=== PATIENT | male | born 1935 | race Caucasian/White ===

== ENCOUNTER 2021-08-29 19:11 | Day surgery (SDCO) | payer MEDICARE ==
[~2021-08-29] VITALS: Ht 182.9 cm; Wt 87.8 kg
[2021-08-29 19:41] LABS: BASOPHIL 0.6 % (0-2); EOSINOPHIL 0.4 % (0-7); HCT 42.5 % (42.0-52.0); HGB 14.1 g/dl (13.2-18.0); LYMPHOCYTE 6.2 % (15-48); MCH 32.8 pg (25.0-31.0); MCHC 33.2 g/dL (32.0-36.0); MCV 98.8 fL (78.0-100.0); MPV 10.4 fL (6.0-9.5); NEUTROPHIL 87.5 % (41-80); NRBC 0; PLT 241 K/uL (150-400); RDW 13.4 % (11.5-14.0); WBC 6.9 K/uL (4.0-10.5)
[2021-08-29 19:54] LABS: ALBUMIN 3.7 g/dL (3.4-5.0); BILIRUBIN - TOTAL 0.6 mg/dL (0.2-1.0); BUN/CREAT RATIO (CALC) 22.8 RATIO; CREATININE 0.92 mg/dL (0.67-1.17); GLOBULIN (CALCULATION) 3.1 g/dL; POTASSIUM 4.1 mmol/L (3.5-5.1); TOTAL PROTEIN 6.8 g/dL (6.4-8.2)
[2021-08-29 20:32] LABS: CORONAVIRUS 2019 SARS-COV-2 NEGATIVE (NEGATIVE); INFLUENZA A NAA NEGATIVE (NEGATIVE)
[2021-08-30] MEDS ORDERED: ISOSORBIDE MONO60 MG PO (01:06)
[2021-08-30] MEDS ORDERED: PRINIVIL20 MG PO (01:07)
[2021-08-30] MEDS ORDERED: APRESOLINE100 MG PO (01:07)
[2021-08-30] MEDS ORDERED: PRAVACHOL20 MG PO (01:07)
[2021-08-30] MEDS ORDERED: FLOMAX0.4 MG PO (01:08)
[2021-08-30] MEDS ORDERED: ONE-A-DAY MEN'1 EAC3 PO (01:09)
[2021-08-30] MEDS ORDERED: FUROSEMIDE 20MG20 MG PO (01:09)
[2021-08-30] MEDS ORDERED: METFORMIN HCL500 MG PO ×2 (01:10)
[2021-08-30] MEDS ORDERED: VAZALORE81 MG PO (01:11)
[2021-08-30 06:51] LABS: BASOPHIL 0.7 % (0-2); EOSINOPHIL 0.9 % (0-7); HCT 35.5 % (42.0-52.0); HGB 11.7 g/dl (13.2-18.0); LYMPHOCYTE 13.1 % (15-48); MCH 32.4 pg (25.0-31.0); MCV 98.3 fL (78.0-100.0); MONOCYTE 12.6 % (0-12); MPV 10.3 fL (6.0-9.5); NEUTROPHIL 72.5 % (41-80); NRBC 0; PLT 192 K/uL (150-400); RBC 3.61 M/uL (4.70-6.00); RDW 13.6 % (11.5-14.0); WBC 4.4 K/uL (4.0-10.5)
[2021-08-30 07:25] LABS: ALBUMIN 2.7 g/dL (3.4-5.0); BILIRUBIN - TOTAL 0.3 mg/dL (0.2-1.0); BUN/CREAT RATIO (CALC) 18.8 RATIO; CREATININE 1.01 mg/dL (0.67-1.17); GLOBULIN (CALCULATION) 2.7 g/dL; MAGNESIUM 1.8 mg/dL (1.8-2.4); PHOSPHORUS 3.4 mg/dL (2.6-4.7); POTASSIUM 3.8 mmol/L (3.5-5.1); TOTAL PROTEIN 5.4 g/dL (6.4-8.2)
[2021-08-31 07:42] LABS: BUN/CREAT RATIO (CALC) 21.1 RATIO; CREATININE 1.23 mg/dL (0.67-1.17); POTASSIUM 3.4 mmol/L (3.5-5.1)
[2021-08-31] MEDS ORDERED: LASIX40 MG PO (10:36)
[2021-08-31] MEDS ORDERED: LOPRESSOR25 MG PO (10:36)
== END 2021-08-31 11:08 | disposition home or self-care (01) ==
LOC: FER 19:11 → FMS 22:56
PROVIDERS: Allergy & Immunology Allergy; Internal Medicine; Nurse Practitioner; ADMIT Internal Medicine
DX: I11.0 Hypertensive heart disease with heart failure (principal); I50.9 Heart failure, unspecified; I21.4 Non-ST elevation (NSTEMI) myocardial infarction; E11.9 Type 2 diabetes mellitus without complications; G47.33 Obstructive sleep apnea (adult) (pediatric); N40.0 Benign prostatic hyperplasia without lower urinary tract symptoms; F17.200 Nicotine dependence, unspecified, uncomplicated; Z20.822 Contact with and (suspected) exposure to COVID-19; Z99.89 Dependence on other enabling machines and devices; Z88.1 Allergy status to other antibiotic agents; Z79.82 Long term (current) use of aspirin; Z79.84 Long term (current) use of oral hypoglycemic drugs; Z79.899 Other long term (current) drug therapy; Z66 Do not resuscitate; Z80.1 Family history of malignant neoplasm of trachea, bronchus and lung; Z80.42 Family history of malignant neoplasm of prostate
CPT/HCPCS: 36415; 71045; 71275; 80048; 80053; 80061; 82550; 82553; 83036; 83735; 83880; 84100; 84145; 84484; 85025; 93005; 94010; 94660; 94762; G0378; J1650; J1940; J1956; Q9967; U0002